=== PATIENT | female | born 2000 | race Caucasian/White ===

== ENCOUNTER 2021-08-05 10:45 | Emergency (ER) | payer OTHER ==
[~2021-08-05] VITALS: Ht 175.3 cm; Wt 95.5 kg
[2021-08-05 10:51] VITALS: TEMP 99
[2021-08-05 14:34] VITALS: BP 104/69; PULSE 97
== END 2021-08-05 14:34 | disposition other institution (70) ==
LOC: COL.ER 10:45
DX: S90.01XA Contusion of right ankle, initial encounter (principal); V00.831A Fall from motorized mobility scooter, initial encounter; Y92.410 Unspecified street and highway as the place of occurrence of the external cause